=== PATIENT | female | born 1975 | race Caucasian/White ===

== ENCOUNTER 2019-02-19 00:15 | Outpatient (CLI) | payer MEDICARE, MEDICAID, SELFPAY ==
--- NOTE | 2019-02-19 08:40 | DI.MAMMO_ITS ---
SYMPTOM/DIAGNOSIS: SCREENING Z00.00 BILATERAL SCREENING MAMMOGRAM: Mammograms were interpreted according to the usual protocol including computer analysis with CAD system, tomosynthesis and C view imaging. Comparison is made with exams from 2005 through 2006 from [facility]. The breasts are composed of extremely dense fibroglandular tissue, breast density category D. No suspicious masses or suspicious microcalcifications are seen. There has been no significant change. IMPRESSION: Category 1, negative mammogram. Yearly screening mammography is recommended. Breast density category D. MQSA ASSESSMENT OF FINDINGS: Negative. Category 1. Patient will receive a letter notifying them of these results. BI-RADS category D. The breasts are extremely dense, which lowers the sensitivity of mammography.
== END 2019-02-19 00:35 ==
PROVIDERS: PCP Family Medicine; Visit Provider Family Medicine
DX: Z12.31 Encounter for screening mammogram for malignant neoplasm of breast (principal)
CPT/HCPCS: 77063; 77067

== ENCOUNTER 2019-02-19 08:56 | Emergency (ER) | payer MEDICARE, MEDICAID, SELFPAY ==
[2019-02-19 09:01] VITALS: BP 123/81; PULSE 75; RESP 16; TEMP 36.7; O2SAT 97
--- NOTE | 2019-02-19 09:08 | ED.GENADUL_ITS ---
Discharge Plan Disposition Patient Disposition: HOME Condition: Stable Discharge Details Chief Complaint: Orthopedic Clinical Impression: Contusion of ankle or foot, left Primary Care Provider: Nicky Serrano ED Provider: Jim Tamayo Home Meds and New Rx's Prescriptions: Continued naproxen sodium 550 MG tablet 550 mg PO BID PRNRF: 0 gabapentin 300 MG capsule 600 mg PO TID RF: 0 hydroxyzine HCl 25 MG tablet 25 - 50 mg PO DAILY PRNRF: 0 naratriptan [Amerge] 2.5 MG tablet 2.5 mg PO BID RF: 0 omeprazole 20 MG tablet,delayed release (DR/EC) 20 mg PO DAILY RF: 0 Discharge Instructions Instructions: Contusion in Adults (ED) Additional Instructions: You may continue to ice and rest the extremity and slowly advance activity as tolerated by discomfort. Continue to use your naproxen or [id number]-[id number] pain medication as needed for discomfort. If not improving in the next couple weeks please follow-up with your primary care provider for reassessment. Referrals: Nicky Serrano MD [Primary Care Provider] - (As needed for reassessment or if not improving) Medical Decision Making Patient presenting the emergency department for chief complaint of left ankle pain. Patient states that 3 days ago she was playing with her dog and a dog but got thrown and struck her left ankle with significant amount of force. She states that it took her down to her knees and since then she has been icing and elevating it but it is continuing to hurt with any ambulation. Physical exam shows soft tissue and lateral malleolus tenderness with some slight ecchymosis to lateral aspect of the ankle otherwise unremarkable exam. Plan to do radiological imaging for evaluation of acute fracture. Review of radiological imaging shows no acute fracture. Patient was given an Horacio wrap and informed to continue NSAID therapy along with ice and activity as tolerated. After discussion of diagnosis and plan of care patient has no further needs, questions, or concerns and states clear understanding to return to the emergency department for any worsening symptoms. HPI General Mode of arrival: ambulatory . Date/Time Provider Initiated Documentation: 02/19/19 09:07 . Limitations to Documentation: no limitations . Information obtained by: patient and RN notes reviewed . History of Present Illness 43 year old F presents to the emergency department with the chief complaint of Left ankle injury, described as moderate, with intensity rated at 4. Quality is described as aching, and is localized to the left and lower extremity. Patient started experiencing this day(s) (3) and it has been constant. Patient notes no other symptoms.. Patient did receive the following treatments prior to arrival, NSAID Related Data Home Medications Medication Instructions Recorded Confirmed gabapentin 600 mg PO TID 04/01/14 02/19/19 hydroxyzine HCl 25 - 50 mg PO DAILY PRN 04/01/14 02/19/19 naproxen sodium 550 mg PO BID PRN 04/01/14 02/19/19 naratriptan [Amerge] 2.5 mg PO BID 04/01/14 02/19/19 omeprazole 20 mg PO DAILY 04/01/14 02/19/19 Allergies Allergy/AdvReac Type Severity Reaction Status Date / Time risperidone AdvReac Severe fainting Unverified 02/19/19 09:03 dihydroergotamine mesylate AdvReac Intermediate hypothermia Unverified 02/19/19 09:03 [From Migranal] propranolol AdvReac Intermediate fatigue, Unverified 02/19/19 09:03 chest heaviness mirtazapine [From Remeron] AdvReac Mild Dizziness/L Unverified 02/19/19 09:03 ightheade General Stated Complaint: Orthopedic NATASHA: 4 Review of Systems Musculoskeletal Reports as per HPI, Denies numbness and Reports tingling Integumentary/Breasts Denies rash, Denies sores and Denies wounds Neurologic Denies numbness and Reports tingling PFSH Social History Smoking/Tobacco Use Status: Current every day Exam Const General: cooperative and no acute distress Orientation: alert, awake and oriented x3 Resp Effort & Inspection: normal respiratory effort and able to speak in complete sentences Cardio Rate: regular rate Rhythm: regular rhythm Extrem General: normal exam except as noted Left lower extremity: ankle Details: tenderness Location: of the lateral malleolus, swelling Details: laterally (mild), abnormal ROM Details: pain with active ROM Details: with inversion and with eversion and ecchymosis (mild) lateral Details: single; no abrasions and no lacerations Course Vital Signs Temperature 36.7 C 02/19/19 09:01 Pulse 75 02/19/19 09:01 Respiratory Rate 16 02/19/19 09:01 Blood Pressure 123/81 02/19/19 09:01 Pulse Oximetry 97 02/19/19 09:01 Temperature 36.7 C 02/19/19 09:01 Temperature Source Skin 02/19/19 09:01 Pulse 75 02/19/19 09:01 Respiratory Rate 16 02/19/19 09:01 Respiratory Effort Non-Labored 02/19/19 09:01 Blood Pressure 123/81 02/19/19 09:01 Blood Pressure Position Sitting 02/19/19 09:01 Pulse Oximetry 97 02/19/19 09:01 Oxygen Delivery Method Room Air 02/19/19 09:01 Oxygen Flow Rate 0 02/19/19 09:01 Pain Level 4 02/19/19 09:01
--- NOTE | 2019-02-19 09:21 | DI.RAD_ITS ---
SYMPTOM/DIAGNOSIS: BLUNT TRAUMA, PAIN LEFT ANKLE: There is some soft tissue swelling over the lateral malleolus. No fracture or ankle mortise widening is seen. IMPRESSION: Soft tissue swelling.
== END 2019-02-19 10:04 | disposition home or self-care (01) ==
PROVIDERS: Emergency Provider Nurse Practitioner Family; PCP Family Medicine
DX: S90.02XA Contusion of left ankle, initial encounter (principal); S90.32XA Contusion of left foot, initial encounter; W22.8XXA Striking against or struck by other objects, initial encounter
CPT/HCPCS: 99283; 73610

== ENCOUNTER 2020-01-14 01:20 | Outpatient (CLI) | payer MEDICARE, MEDICAID, SELFPAY ==
--- NOTE | 2020-01-14 | DI.CT_ITS ---
EXAM: CT ABDOMEN PELVIS W CLINICAL HISTORY: ABD PAIN EPIGASTRIC, R10.13 TECHNIQUE: Imaging Protocol: Axial computed tomography images with coronal and sagittal reformatted images were created and reviewed CONTRAST MATERIAL: Intravenous: Omnipaque 350 Contrast volume:100 mL Oral: Yes COMPARISON: No exams were available for comparison FINDINGS: ABDOMEN: Lung Bases: Normal where visualized. Liver: Normal density. No measurable mass. Portal, Superior Mesenteric, and Splenic Veins: Unremarkable. Gallbladder and Biliary Tract: No radiodense calculus or dilation. Pancreas: Normal density, no abnormal calcifications or inflammatory process. Spleen: Normal. Adrenals: No masses seen. Kidneys: Normal size, contour and axis. No radiodense stones or obstructive uropathy. Tiny hypodensit ies are seen at the superior aspect of the left kidney. They are too small for further characterizat ion but likely reflect small cysts. Abdominal Aorta: Abdominal portion non-dilated. Mild atherosclerosis. Bowel: No obstruction or bowel wall thickening. Appendix is unremarkable. Peritoneal Cavity: No ascites, collection or mesenteric inflammatory response. Lymph Nodes: Within normal limits. Bones: Mild degenerative changes are seen in the thoracolumbar spine. Soft Tissues: Unremarkable. PELVIS: Bladder: Symmetric distention, no gross wall thickening. Reproductive Organs: Unremarkable as visualized. Lymph Nodes: Within normal limits. Bones: Please see the above discussion. IMPRESSION: No acute abdominal or pelvic process. RADIATION DOSE DELIVERED: Total DLP DATA REPOSITORY: All CT scans at this facility are submitted to the National Radiology Data Registry (NRDR) Dose Index Registry (DIR) with the [employer] (ACR). RADIATION OPTIMIZATION: All CT scans at this facility use at least one of these dose optimization te chniques: automated exposure control; mA and/or kV adjustment per patient size (includes targeted exa ms where dose is matched to clinical indication); or iterative reconstruction.
[2020-01-14] MEDS: Breeza Beverage 473 ML BTL PO ×2 (09:49→09:50)
[2020-01-14] MEDS: Normal Saline - Diluent 50 ML VIAL IV (09:50)
[2020-01-14] MEDS: Omnipaque 350 MG/ML 100 ML BTL IJ (09:50)
[2020-01-14] MEDS: Normal Saline Flush 10 ML SYR IVP (09:51)
[2020-01-14] MEDS: Omnipaque 350 MG/ML 50 ML BTL PO (09:52)
== END 2020-01-14 01:40 ==
PROVIDERS: PCP Family Medicine; Visit Provider Family Medicine
DX: R10.13 Epigastric pain (principal); N28.1 Cyst of kidney, acquired
CPT/HCPCS: 74177; J3490; Q9967

== ENCOUNTER 2022-10-12 10:28 | Outpatient (REF) | payer MEDICARE, MEDICAID, SELFPAY ==
[2022-10-12 15:17] LABS: Calculated LDL 141 mg/dL (<100); Cholesterol 237 mg/dL (<200); HDL Cholesterol 61 mg/dL (40-60); Triglyceride 178 mg/dL (<150)
[2022-10-13 10:31] LABS: Hepatitis C Ab w Rflx HCV PCR Negative (Negative)
[2022-10-13 10:54] LABS: HIV-1/2 Ag & Ab Screen Negative (Negative)
== END 2022-10-12 10:29 | disposition home or self-care (01) ==
LOC: NCHCN 10:28
PROVIDERS: PCP Family Medicine; Visit Provider Family Medicine
DX: E78.89 Other lipoprotein metabolism disorders (principal); Z11.4 Encounter for screening for human immunodeficiency virus [HIV]; Z11.59 Encounter for screening for other viral diseases; Z00.00 Encounter for general adult medical examination without abnormal findings
CPT/HCPCS: 80061; 86803; 87389

== ENCOUNTER 2022-12-07 02:16 | Outpatient (CLI) | payer MEDICARE, MEDICAID, SELFPAY ==
--- NOTE | 2022-12-07 12:20 | DI.MAMMO_ITS ---
Exam(s) MAMMO SCREENING EXAM: MAMMO SCREENING CLINICAL HISTORY: SCREENING, Z12.39. TECHNIQUE: Bilateral full field digital CC and MLO mammographic images were obtained with 3D tomosyn thesis and utilizing computer aided detection (CAD). COMPARISON: Prior mammogram of February 2019 was reviewed, that being the only prior mammogram in our PACS FINDINGS: Fibroglandular tissue pattern in the breast is again noted to be moderately dense. There are no obvious new findings in the right breast. In the left breast on the MLO view there is a group of microcalcifications located superiorly-posteri maria luisa, approximately 8 cm in from the nipple more evident than previous. Mag views recommended. Ther e is no obvious discernible nodule at this level. There is no significant architectural distortion nor skin thickening-retraction. IMPRESSION: Dense bilateral fibroglandular tissue. No obvious radiographic evidence of malignancy in the right b reast. Left breast microcalcification group which requires additional imaging, including 2D Mag views (MLO) as well as exaggerated CC Mag view and a straight lateral view. BI-RADS Category 0 - Assessment Incomplete: Need additional imaging evaluation Breast Density - Category C-heterogeneously dense Breast density Category C or D implies that the patient has dense breast tissue. Dense breast tissue can make it harder to find cancer on a mammogram. Dense breast tissue is also associated with an incr eased risk of breast cancer. This information about the result of the mammogram report was provided to the patient to raise their awareness. Use this report when you speak with the patient about their risks for breast cancer, which includes their family history. At that time, you may recommend additional screening tests (Ultrasoun d or MRI) as these tests may add significant information. A negative radiographic report should not delay biopsy if a dominant or clinically suspicious mass is present. Up to ten percent of cancers are not identified on mammography. A negative report may reinforce clinical impression. Adenosis and dense breasts may obscure an underlying neoplasm. False positive reports average 6 to 10%. Patient will receive a letter notifying them of these results.
== END 2022-12-07 02:36 ==
PROVIDERS: PCP Family Medicine; Visit Provider Family Medicine
DX: Z12.31 Encounter for screening mammogram for malignant neoplasm of breast (principal)
CPT/HCPCS: 77063; 77067

== ENCOUNTER 2022-12-14 02:07 | Outpatient (CLI) | payer MEDICARE, MEDICAID, SELFPAY ==
--- NOTE | 2022-12-14 13:27 | DI.MAMMO_ITS ---
Exam(s) MAMMO SCREEN CALL BACK BI EXAM: MAMMO SCREEN CALL BACK BI CLINICAL HISTORY: MICROCALCIFICATIONS SUPERIORLY POSTERIORLY 8 CM FROM NIPPLE, LT BREAST TECHNIQUE: Cc and MLO spot magnification compression views of both breasts were performed. COMPARISON: 2019 and recent exam of December 06 FINDINGS: Magnification views show innumerable loosely clustered calcifications of similar size and appearance in both upper portions of the breast, in the upper central left breast in the upper outer quadrant o f the right breast. There are no suspicious features. No associated mass. IMPRESSION: BI-RADS Cat 3 - 6 month - Probably Benign Finding: Recommend follow-up imaging in 6 months, including bilateral magnification views. Breast Density - Category C - Heterogeneously dense
== END 2022-12-14 02:27 ==
LOC: DI 02:08
PROVIDERS: PCP Family Medicine; Visit Provider Family Medicine
DX: Z12.31 Encounter for screening mammogram for malignant neoplasm of breast (principal)
CPT/HCPCS: 77063; 77067

== ENCOUNTER → 2023-08-02 01:43 | Outpatient (CLI) | payer MEDICARE, MEDICAID, SELFPAY ==
--- OUTSIDE RECORDS SUMMARY | 2023-07-13 00:37 | XMS_ITS | CCD ---
Author Name Unknown Address [address] [place] [address] [phone] Organization Unknown Address [address] [place] [address] [id number] Care Team Providers Care Supervisor [employer] Name Role Phone CAYLA CALDWELL Attending Physician [phone] CAYLA CALDWELL Er Physician 0 [phone] ANDERS Latif Registered Nurse [phone] Vital Signs Vital Sign Value Unit Date/Time Recent/Initial ? BMI (Body Mass Index) 23.91 kg/m^2 07/14/2021 09: 59 Initial VS Weight Measured 135 lbs 07/14/2021 09:59 Ini tial VS Height 63 in 07/14/2021 09:59 Initial VS BSA (Body Surface Area) 1.65 m^2 07/14/2021 0 9:59 Initial VS BP Systolic 123 mmHg 07/14/2021 09:59 Initial VS BP Diastolic 87 mmHg 07/14/2021 09:59 Initia l VS Respiratory Rate 20 bpm 07/14/2021 09:59 In itial VS Heart Rate 85 bpm 07/14/2021 09:59 Initial VS O2 % BldC Oximetry 100 % 07/14/2021 09:59 Initial VS Body Temperature 37.1 degrees 07/14/2021 09:59 In itial VS Allergies Allergy Code Allergy Type Reaction Status Migranol (Free Text) {Clinic al monitoring unavailable} 0 Drug allergy Chills, almost unconcio us Active Procedures Unknown or Not Available. History of Immunizations Unknown or Not Available. Problems Unknown or Not Available. Results KAMRYN BAILONID EMIRX* - Mary ect Date/Time: 07/14/2021 10:13 Test Name Code Test Result Test Units Test Ref Rang e Tier- SYMPTOMS N/A SARS COV2 RNA: 25373-3 NEGATIVE N/A REFERENCE RANGE: NEGAT STREP GROUP A ANTIGEN ASSAY - Collect Date/Time: 07/14/2021 10:13 Test Name Code Test Result Test Units Test Ref Rang e GRP A STREP ANTIGEN 6556-5 NOT DETECTED N/A Active Medications Medications Administered During Visit Medication Dose Units Frequency Route Date/Time of Last Dose ALBUTEROL HFA INHALER 8GM: 90MCG/INH 1 PUFF X1 INH 07/14/2021 10:4 1 Encounters Encounter Diagnosis Diagnosis Code Start Date Acute upper respiratory infection [id number] 07/14/2021 Social History Smoking Status Code Start Date End Date Former smoker [id number] Patient Decision Aids Unknown or Not Available. Discharge Instructions You were admitted to [facility] on 07/14/2021 09:22 with a principal diagnosis of Acute upper respiratory infection, unspecified You had the following tests done:[employer] RHEONIX*STREP GROUP A ANTIGEN ASSAY You were discharged from [facility] on 07/14/2021 10:43 Should you have any questions prior to discharge, please contact a member of your healthcare team. If you have left the hospital and have any questions, please contact your primary care physician. Chief Complaint and Reason For Visit Chief Complaint Date of Onset SOB Function Status Unknown or Not Available. Plan of Care Unknown or Not Available. Referral/Transition of Care Unknown or Not Available.
--- OUTSIDE RECORDS SUMMARY | 2023-07-13 00:37 | XMS_ITS | CCD ---
Author Name Unknown Address [address] [place] [address] [id number] Organization Unknown Address [address] [place] [address] [phone] Care Team Providers Care Order Processing Clerk Name Role Phone JAI SELLERS Attending Physician [id number] SHIN YU Er Physician 5 [phone] LAURA Sandy Registered Nurse [phone] Vital Signs Vital Sign Value Unit Date/Time Recent/Initial ? BP Systolic 126 mmHg 03/21/2023 10:06 Initial VS BP Diastolic 109 mmHg 03/21/2023 10:06 Initia l VS Respiratory Rate 18 bpm 03/21/2023 10:06 In itial VS Heart Rate 61 bpm 03/21/2023 10:06 Initial VS O2 % BldC Oximetry 100 % 03/21/2023 10:06 Initial VS Body Temperature 36.3 degrees 03/21/2023 10:06 In itial VS BP Systolic 112 mmHg 03/21/2023 13:26 Most Re cent VS BP Diastolic 75 mmHg 03/21/2023 13:26 Most R ecent VS Respiratory Rate 16 bpm 03/21/2023 13:[address] Recent VS Heart Rate 66 bpm 03/21/2023 13:26 Most Rec ent VS O2 % BldC Oximetry 100 % 03/21/2023 13:26 Most Recent VS Body Temperature 36.1 degrees 03/21/2023 13:[address] Recent VS Allergies Allergy Code Allergy Type Reaction Status Migranol (Free Text) {Clinic al monitoring unavailable} 0 Drug allergy Chills, almost unconcio us Active Procedures Unknown or Not Available. History of Immunizations Unknown or Not Available. Problems Unknown or Not Available. Results COMPREHENSIVE METABOLIC PANE L (CMP) - Collect Date/Time: 03/21/2023 10:25 Test Name Code Test Result Test Units Test Ref Rang e GLUCOSE 2345-7 99 mg/dL L=70 H=116 BUN 3094-0 16 mg/dL L=6 H=25 CREATININE 2160-0 0.80 mg/dL L=0.51 H=0.95 SODIUM SERUM 2951-2 138 mmol/L L=136 H=145 POTASSIUM SERUM 2823-3 3.7 mmol/L L=3.4 H=5 .2 CHLORIDE SERUM 2075-0 105 mmol/L L=96 H=110 CARBON DIOXIDE (CO2) 2028-9 26 mmol/L L=22 H=34 ANION GAP 34292-3 6.7 mmol/L CALCIUM SERUM 69957-5 8.7 mg/dL L=8.2 H=10. 2 BILIRUBIN TOTAL 1975-2 0.4 mg/dL L=0.0 H=1 .3 ALK. PHOS. 6768-6 66 U/L L=46 H=116 SGOT (AST) 1920-8 17 U/L L=15 H=37 SGPT (ALT) 1742-6 20 U/L L=12 H=78 TOTAL PROTEIN 2885-2 7.0 gm/dL L=6.0 H=8.0 ALBUMIN 1751-7 3.9 gm/dL L=3.4 H=5.0 AGE 48 years eGFR (non-Afr.Amer.) 14673-3 76 mL/min eGFR (Afr-[place]) 71483-3 92 mL/min LIPASE* NEW - Collect Date/T shelby: 03/21/2023 10:25 Test Name Code Test Result Test Units Test Ref Rang e LIPASE. 46 U/L L=16 H=77 CBC W/ DIFFERENTIAL* - [facility] ct Date/Time: 03/21/2023 10:25 Test Name Code Test Result Test Units Test Ref Rang e WBC 5.54 th/cmm L=5.00 H=10.00 NRBC % 0.0 % L=0.0 H=0.0 NRBC abs count 0.0 mil/cmm L=0.0 H=0. 0 RBC 5.02 mil/cmm L=3.90 H=5.40 HEMOGLOBIN 15.0 gm/dL L=12.0 H=16.0 HEMATOCRIT 44 % L=37 H=47 MCV 88 fL L=82 H=92 MCH 29.9 pg L=27.0 H=31.0 MCHC 34.1 % L=32.0 H=36.0 RDW-SD 42.0 fL L=39.0 H=49.0 PLATELET COUNT 189 th/cmm L=150 H=45 0 Segs % 56 Bands % 1 Lymphs % 78931-7 36 Monos % 66214-5 6 Eos % 1 Atyp lymphs 2+ N/A Giant plts present N/A TEST QUAL (URINE) - Collect Date/Time: 03/21/2023 11:20 Test Name Code Test Result Test Units Test Ref Rang e TEST 2105- NEGATIVE N/A URINALYSIS WITH REFLEX CULT IF POSITIVE* - Collect Date/Time: 03/21/2023 11:20 Test Name Code Test Result Test Units Test Ref Rang e COLLECTION MODE: 97143-4 CLEAN CATCH N/A Color 5778-6 YELLOW N/A yellow Appearance 5767-9 CLEAR N/A clear Glucose urine 86389-0 NEGATIVE N/A negative mg /dl Bilirubin 5770-3 NEGATIVE N/A negative Ketones 2514-8 NEGATIVE N/A negative mg/dl Spec gravity 5811-5 <=1.005 N/A 1.003 - 1.03 0 pH urine 2756-5 6.0 N/A 5.0 - 7.0 Protein 11356-8 NEGATIVE N/A negative mg/dl Urobilinogen 75343-4 0.2 N/A <or= 1 EU/dl Nitrite. 5802-4 NEGATIVE N/A negative Blood 5794-3 NEGATIVE N/A negative Leukocytes. NEGATIVE N/A negative MICROSCOPIC NOT INDICAT N/A Active Medications Medications Administered During Visit Medication Dose Units Frequency Route Date/Time of Last Dose SODIUM CHLORIDE 0.9% 1000ML 1000 ML X1 03/21/2023 10:53 ACETAMINOPHEN INJ IVPB: 1000MG/100ML 1000 MG X1 03/21/2023 10:5 3 ONDANSETRON INJ SDV: 4MG/2ML 4 MG X1 I EDUCATIONAL INTERPRETER 03/21/2023 10:53 FentaNYL INJ SYRINGE: 50MCG/ML 50 MCG X1 IVP 03/21/2023 12:05 KETOROLAC INJ SDV: 30MG/1ML 15 MG X1 IV P 03/21/2023 13:07 ER-ONDANSETRON ODT 4 PACK: 4MG 4 MG PRN Q8H PO 03/21/2023 13:36 Encounters Encounter Diagnosis Diagnosis Code Start Date Noninfectious gastroenteritis [id number] Social History Smoking Status Code Start Date End Date Former smoker [id number] Patient Decision Aids Unknown or Not Available. Discharge Instructions You were admitted to [facility] on 03/21/2023 09:04 with a principal diagnosis of Noninfective gastroenteritis and colitis, unspecified You had the following tests done: TEST QUAL (URINE)URINALYSIS WITH REFLEX CULT IF POSITIVE*CBC W/ DIFFERENTIAL*COMPREHENSIVE METABOLIC PANEL (CMP)LIPASE* NEW You were discharged from [facility] on 03/21/2023 13:35 Should you have any questions prior to discharge, please contact a member of your healthcare team. If you have left the hospital and have any questions, please contact your primary care physician. Chief Complaint and Reason For Visit Chief Complaint Date of Onset PAIN UNDER RIGHT RIB 03/21/2023 Function Status Unknown or Not Available. Plan of Care Unknown or Not Available. Referral/Transition of Care Unknown or Not Available.
--- OUTSIDE RECORDS SUMMARY | 2023-08-01 13:20 | XMS_ITS | CCD ---
Author Name Unknown Address [address] [place] [address] [phone] Organization Unknown Address [address] [place] [address] [phone] Care Team Providers Care Support Teacher Name Role Phone SIOBHAN MTZ Attending Physician [phone] RICARDO TORIBIO Er Physician 7 [phone] MULU Pina Registered Nurse [phone] Vital Signs Vital Sign Value Unit Date/Time Recent/Initial ? BMI (Body Mass Index) 24.98 kg/m^2 02/08/2022 07: 50 Initial VS Weight Measured 141 lbs 02/08/2022 07:50 Ini tial VS Height 63 in 02/08/2022 07:50 Initial VS BSA (Body Surface Area) 1.69 m^2 02/08/2022 0 7:50 Initial VS BP Systolic 130 mmHg 02/08/2022 07:50 Initial VS BP Diastolic 100 mmHg 02/08/2022 07:50 Initia l VS Respiratory Rate 18 bpm 02/08/2022 07:50 In itial VS Heart Rate 76 bpm 02/08/2022 07:50 Initial VS O2 % BldC Oximetry 100 % 02/08/2022 07:50 Initial VS Body Temperature 36.7 degrees 02/08/2022 08:16 In itial VS BP Systolic 127 mmHg 02/08/2022 11:45 Most Re cent VS BP Diastolic 90 mmHg 02/08/2022 11:45 Most R ecent VS Respiratory Rate 18 bpm 02/08/2022 11:[address] Recent VS Heart Rate 63 bpm 02/08/2022 11:45 Most Rec ent VS O2 % BldC Oximetry 100 % 02/08/2022 11:45 Most Recent VS Allergies Allergy Code Allergy Type Reaction Status Migranol (Free Text) {Clinic al monitoring unavailable} 0 Drug allergy Chills, almost unconcio us Active Procedures Unknown or Not Available. History of Immunizations Unknown or Not Available. Problems Unknown or Not Available. Results COMPREHENSIVE METABOLIC PANE L (CMP) - Collect Date/Time: 02/08/2022 07:43 Test Name Code Test Result Test Units Test Ref Rang e GLUCOSE 2345-7 112 mg/dL L=70 H=116 BUN 3094-0 14 mg/dL L=6 H=25 CREATININE 2160-0 0.85 mg/dL L=0.51 H=0.95 SODIUM SERUM 2951-2 139 mmol/L L=136 H=145 POTASSIUM SERUM 2823-3 3.7 mmol/L L=3.4 H=5 .2 CHLORIDE SERUM 2075-0 104 mmol/L L=96 H=110 CARBON DIOXIDE (CO2) 2028-9 26 mmol/L L=22 H=34 ANION GAP 72647-9 9.3 mmol/L CALCIUM SERUM 31951-5 8.4 mg/dL L=8.2 H=10. 2 BILIRUBIN TOTAL 1975-2 0.5 mg/dL L=0.0 H=1 .3 ALK. PHOS. 6768-6 59 U/L L=46 H=116 SGOT (AST) 1920-8 15 U/L L=15 H=37 SGPT (ALT) 1742-6 26 U/L L=12 H=78 TOTAL PROTEIN 2885-2 6.8 gm/dL L=6.0 H=8.0 ALBUMIN 1751-7 3.9 gm/dL L=3.4 H=5.0 AGE 46 years eGFR (non-Afr.Amer.) 71529-0 71 mL/min eGFR (Afr-Thai) 74494-1 86 mL/min LIPASE* - Collect Date/Time: 02/08/2022 07:43 Test Name Code Test Result Test Units Test Ref Rang e LIPASE 232 U/L L=73 H=393 TROPONIN HIGH SENSITIVITY* - Collect Date/Time: 02/08/2022 07:43 Test Name Code Test Result Test Units Test Ref Rang e TROPONIN HS 4.4 pg/mL L=0.0 H=60.4 Specimen seq. Random N/A CBC W/ DIFFERENTIAL* - Colle ct Date/Time: 02/08/2022 07:43 Test Name Code Test Result Test Units Test Ref Rang e WBC 6690-2 6.32 th/cmm L=5.00 H=10.00 NEUT % 61.8 % L=40.0 H=80.0 LYMPH % 28.8 % L=10.0 H=50.0 MONO % 90666-0 6.3 % L=2.0 H=12.0 EOS % 2.4 % L=0.0 H=8.0 BASO % 0.5 % L=0.0 H=3.0 IG % 2514-8 0.2 % L=0.0 H=1.1 NRBC % 07930-1 0.0 % L=0.0 H=0.0 NEUT abs count 751-8 3.9 th/cmm L=1.6 H=8. 4 LYMPH abs count 731-0 1.8 th/cmm L=1.5 H=4 .0 MONO abs count 742-7 0.4 th/cmm L=0.2 H=1. 0 EOS abs count 711-2 0.2 th/cmm L=0.0 H=0.5 BASO abs count 704-7 0.0 th/cmm L=0.0 H=0. 2 IG abs count 38988-0 0.0 th/cmm L=0.0 H=0.1 NRBC abs count 68942-0 0.0 mil/cmm L=0.0 H=0. 0 RBC 789-8 4.84 mil/cmm L=3.90 H=5.40 HEMOGLOBIN 718-7 14.6 gm/dL L=12.0 H=16.0 HEMATOCRIT 4544-3 42 % L=37 H=47 MCV 787-2 87 fL L=82 H=92 MCH 785-6 30.2 pg L=27.0 H=31.0 MCHC 786-4 34.5 % L=32.0 H=36.0 RDW-SD 788-0 39.8 fL L=39.0 H=49.0 PLATELET COUNT 777-3 200 th/cmm L=150 H=45 0 Active Medications Unknown or Not Available. Medications Administered During Visit Medication Dose Units Frequency Route Date/Time of Last Dose SODIUM CHLORIDE 0.9% 1000ML 500 ML X1 IV 02/08/2022 09:20 ACETAMINOPHEN INJ IVPB: 1000MG/100ML 1000 MG X1 IVPB 02/08/2022 08:5 0 ONDANSETRON INJ SDV: 4MG/2ML 4 MG X1 I RN HOSPICE 02/08/2022 08:50 KETOROLAC INJ SDV: 30MG/1ML 15 MG X1 IV P 02/08/2022 10:29 Encounters Encounter Diagnosis Diagnosis Code Start Date Chest pain, unspecified R079 02/09/20 22 Social History Smoking Status Code Start Date End Date Former smoker [id number] Patient Decision Aids Unknown or Not Available. Discharge Instructions You were admitted to [facility] on 02/08/2022 07:29 with a principal diagnosis of Chest pain, unspecified You had the following tests done:CBC W/ DIFFERENTIAL*COMPREHENSIVE METABOLIC PANEL (CMP)LIPASE*TROPONIN HIGH SENSITIVITY* You were discharged from [facility] on 02/08/2022 12:00 Should you have any questions prior to discharge, please contact a member of your healthcare team. If you have left the hospital and have any questions, please contact your primary care physician. Chief Complaint and Reason For Visit Chief Complaint Date of Onset CHEST PAIN Function Status Unknown or Not Available. Plan of Care Unknown or Not Available. Referral/Transition of Care Unknown or Not Available.
--- OUTSIDE RECORDS SUMMARY | 2023-08-01 13:20 | XMS_ITS | CCD ---
Author Name Unknown Address [address] [place] [address] [phone] Organization Unknown Address [address] [place] [address] [phone] Care Team Providers Care Technician Test Systems Name Role Phone JAI SELLERS Attending Physician [phone] SHIN YU Er Physician 1 [phone] LAURA Sandy Registered Nurse [phone] Vital Signs Vital Sign Value Unit Date/Time [...] 2028-9 26 mmol/L L=22 H=34 ANION GAP 00917-7 6.7 mmol/L CALCIUM SERUM 29772-7 8.7 mg/dL L=8.2 H=10. 2 BILIRUBIN TOTAL 1975-2 0.4 mg/dL L=0.0 H=1 .3 ALK. PHOS. 6768-6 66 U/L L=46 H=116 SGOT (AST) 1920-8 17 U/L L=15 H=37 SGPT (ALT) 1742-6 20 U/L L=12 H=78 TOTAL PROTEIN 2885-2 7.0 gm/dL L=6.0 H=8.0 ALBUMIN 1751-7 3.9 gm/dL L=3.4 H=5.0 AGE 48 years eGFR (non-Afr.Amer.) 73301-2 76 mL/min eGFR (Afr-Bahraini) 00512-4 92 mL/min LIPASE* NEW - Collect Date/T shelby: 03/21/2023 10:25 Test Name Code Test Result Test Units Test Ref Rang e LIPASE. 46 U/L L=16 H=77 CBC W/ DIFFERENTIAL* - [facility] ct Date/Time: 03/21/2023 10:25 Test Name Code [...] % 56 Bands % 1 Lymphs % 43379-8 36 Monos % 98913-1 6 Eos % 1 Atyp lymphs 2+ N/A Giant plts present N/A TEST QUAL (URINE) - Collect Date/Time: 03/21/2023 11:20 Test Name Code Test Result Test Units Test Ref Rang e TEST 2105- NEGATIVE N/A URINALYSIS WITH REFLEX CULT IF POSITIVE* - Collect Date/Time: 03/21/2023 11:20 Test Name Code Test Result Test Units Test Ref Rang e COLLECTION MODE: 91731-0 CLEAN CATCH N/A Color 5778-6 YELLOW N/A yellow Appearance 5767-9 CLEAR N/A clear Glucose urine 00642-6 NEGATIVE N/A negative mg /dl Bilirubin 5770-3 NEGATIVE N/A negative Ketones 2514-8 NEGATIVE N/A negative mg/dl Spec gravity 5811-5 <=1.005 N/A 1.003 - 1.03 0 pH urine 2756-5 6.0 N/A 5.0 - 7.0 Protein 81008-0 NEGATIVE N/A negative mg/dl Urobilinogen 37053-6 0.2 N/A <or= 1 EU/dl Nitrite. 5802-4 [...] INJ SDV: 4MG/2ML 4 MG X1 I CLEARING HOUSE CLERK 03/21/2023 10:53 FentaNYL INJ SYRINGE: 50MCG/ML 50 MCG X1 IVP 03/21/2023 12:05 KETOROLAC INJ SDV: 30MG/1ML 15 MG X1 IV P 03/21/2023 13:07 ER-ONDANSETRON ODT 4 PACK: 4MG 4 MG PRN Q8H PO 03/21/2023 13:36 Encounters Encounter Diagnosis Diagnosis Code Start Date Noninfectious gastroenteritis [id number] Social History Smoking Status Code Start Date End Date Former smoker [id number] Patient Decision Aids Unknown or Not Available. Discharge Instructions You were admitted to [facility] on 03/21/2023 09:04 with a principal diagnosis of Noninfective gastroenteritis and colitis, unspecified You had the following tests done: TEST QUAL (URINE)URINALYSIS WITH REFLEX CULT IF POSITIVE*CBC W/ DIFFERENTIAL*COMPREHENSIVE METABOLIC PANEL (CMP)LIPASE* NEW You were discharged from [facility] on 03/21/2023 13:35 Should you have [...]
--- OUTSIDE RECORDS SUMMARY | 2023-08-01 13:20 | XMS_ITS | CCD ---
Author Name Unknown Address [address] [place] [address] [id number] Organization Unknown Address [address] [place] [address] [phone] Care Team Providers Care Railway Switch Operator Name Role Phone CAYLA CALDWELL Attending Physician [phone] CAYLA CALDWELL Er Physician 5 [phone] ANDERS Latif Registered Nurse [phone] Vital Signs Vital Sign Value Unit Date/Time [...] e Tier- SYMPTOMS N/A SARS COV2 RNA: 07586-8 NEGATIVE N/A REFERENCE RANGE: NEGAT STREP GROUP [...] Code Start Date Acute upper respiratory infection [id number] 07/14/2021 Social History Smoking Status Code Start Date End Date Former smoker [id number] Patient Decision Aids Unknown or Not Available. Discharge Instructions You were admitted to [facility] on 07/14/2021 09:22 with a principal diagnosis of Acute upper respiratory infection, unspecified You had the following tests done:[employer] RHEONIX*STREP GROUP A ANTIGEN ASSAY You were discharged from [facility] on 07/14/2021 10:43 Should you have any [...]
--- OUTSIDE RECORDS SUMMARY | 2023-08-01 13:20 | XMS_ITS | CCD ---
Author Name Unknown Address [address] [place] [address] [phone] Organization Unknown Address [address] [place] [address] [phone] Care Team Providers Care Lithographic Retoucher Apprentice Name Role Phone DEVAN MALHOTRA Attending Physician [phone] SUZANNE VERGARA Er Physician 1 [phone] GEOVANNI Dickey Registered Nurse [phone] Vital Signs Vital Sign Value Unit Date/Time Recent/Initial ? BMI (Body Mass Index) 24.09 kg/m^2 07/21/2023 09: 34 Initial VS Weight Measured 136 lbs 07/21/2023 09:34 Ini tial VS Height 63 in 07/21/2023 09:34 Initial VS BSA (Body Surface Area) 1.66 m^2 07/21/2023 0 9:34 Initial VS BP Systolic 132 mmHg 07/21/2023 09:34 Initial VS BP Diastolic 85 mmHg 07/21/2023 09:34 Initia l VS Respiratory Rate 18 bpm 07/21/2023 09:34 In itial VS Heart Rate 88 bpm 07/21/2023 09:34 Initial VS O2 % BldC Oximetry 100 % 07/21/2023 09:34 Initial VS Body Temperature 36.3 degrees 07/21/2023 09:34 In itial VS Allergies Allergy Code Allergy Type Reaction Status Migranol (Free Text) {Clinic al monitoring unavailable} 0 Drug allergy Chills, almost unconcio us Active Procedures Unknown or Not Available. History of Immunizations Unknown or Not Available. Problems Unknown or Not Available. Results Unknown or Not Available. Active Medications Unknown or Not Available. Medications Administered During Visit Medication Dose Units Frequency Route Date/Time of Last Dose LIDOCAINE PATCH 5% 1 PATCH X1 TRANSDERMAL 07/21/2023 12:16 Encounters Encounter Diagnosis Diagnosis Code Start Date Chest injury [id number] 07/21/2023 Social History Smoking Status Code Start Date End Date Former smoker [id number] Patient Decision Aids Unknown or Not Available. Discharge Instructions You were admitted to [facility] on 07/21/2023 09:34 with a principal diagnosis of Unspecified injury of thorax, initial encounter You were discharged from [facility] on 07/21/2023 12:17 Should you have any questions prior to discharge, please contact a member of your healthcare team. If you have left the hospital and have any questions, please contact your primary care physician. Chief Complaint and Reason For Visit Chief Complaint Date of Onset SHARP PAIN UNDER RIGHT RIBS Function Status Unknown or Not Available. Plan of Care Unknown or Not Available. Referral/Transition of Care Unknown or Not Available.
--- NOTE | 2023-08-02 | DI.MAMMO_ITS ---
Exam(s) MAMMO DIAGNOSTIC BI EXAM: MAMMO DIAGNOSTIC BI CLINICAL HISTORY: BILAT LISA MAMMO R92.8 6 MO FU. TECHNIQUE: Bilateral CC and MLO and spot Mag 2D mammographic images were obtained with 3D tomosynthe sis technique and utilizing computer aided detection (CAD). COMPARISON: Prior mammograms were reviewed, the most recent being 12/07/2022. This is a follow-up for bilateral microcalcifications. FINDINGS: The bilateral spot magnification views reveal the previously described bilateral microcalcification g roups to be stable and remain benign in appearance. There are no new obvious spiculated masses nor new significant architectural distortion. No skin thi ckening-traction. IMPRESSION: Stable benign-appearing bilateral microcalcification groups. No obvious radiographic evidence of mal ignancy Appropriate follow-up is to keep this patient on her yearly schedule, this implying that her next fela ateral mammogram would be in December 2023 and at that time repeat Mag views of both breasts should be pe rformed. The patient was informed of the findings and follow-up recommendations by myself prior to leaving the department today. BI-RADS Category 2 - Benign Findings Breast Density - Category C - Heterogeneously dense Breast density Category C or D implies that the patient has dense breast tissue. Dense breast tissue can make it harder to find cancer on a mammogram. Dense breast tissue is also associated with an incr eased risk of breast cancer. This information about the result of the mammogram report was provided to the patient to raise their awareness. Use this report when you speak with the patient about their risks for breast cancer, which includes their family history. At that time, you may recommend additional screening tests (Ultrasoun d or MRI) as these tests may add significant information. A negative radiographic report should not delay biopsy if a dominant or clinically suspicious mass is present. Up to ten percent of cancers are not identified on mammography. A negative report may reinforce clinical impression. Adenosis and dense breasts may obscure an underlying neoplasm. False positive reports average 6 to 10%. Patient will receive a letter notifying them of these results.
== END ==
PROVIDERS: PCP Family Medicine; Visit Provider Family Medicine
DX: Z12.31 Encounter for screening mammogram for malignant neoplasm of breast (principal)
CPT/HCPCS: 77062; 77066; G0279